=== PATIENT | male | born 1975 | race Caucasian/White ===

== ENCOUNTER 2017-09-07 02:23 | Emergency (ER) | payer BC ==
[2017-09-07 02:56] VITALS: BP 137/83; PULSE 83; TEMP 97.7; BMI 35.2
== END 2017-09-07 03:24 | disposition left against medical advice (07) ==
LOC: JER 02:23
DX: Z53.21 Procedure and treatment not carried out due to patient leaving prior to being seen by health care provider (principal)
CPT/HCPCS: 99281-25

== ENCOUNTER 2017-11-28 10:41 | Day surgery (SDC) | payer BC ==
[2017-11-25 14:21] VITALS: BMI 35.1
[2017-11-28 11:50] VITALS: TEMP 97.8
[2017-11-28 12:53] VITALS: BP 135/79; PULSE 84
--- NOTE | 2017-11-29 12:54 | PATH ---
Surgical Pathology Report Patient Name: ANN LOCO [facility]. Rec. #: [id number] /Age/Gender: 1975 (Age: 42) / M Account: [id number] [facility] Taken: 11/28/2017 Received: 11/28/2017 Reported: 11/29/2017 Physicians: Bayron Reza M.D. Specimen(s) Received A: BX PYLORIC NODULE / PROMINENT FOLD B: BX SCHATZKIS RING C: BX MID ESOPHAGUS Clinical History Preoperative diagnosis: Dysphagia Postoperative diagnosis: Schatzki's ring, GERD, antral gastritis with nodule Final Diagnosis A. STOMACH, PREPYLORIC NODULE, BIOPSY: REACTIVE GASTROPATHY WITH MILD CHRONIC GASTRITIS AND FOCAL INTESTINAL METAPLASIA. NO DYSPLASIA IDENTIFIED. IMMUNOSTAIN FOR H. PYLORI IS NEGATIVE. B. ESOPHAGUS, SCHATZKI'S RING, BIOPSY: SQUAMOUS MUCOSA WITH PAPILLOMATOSIS AND INTRAEPITHELIAL EOSINOPHILS CONSISTENT WITH REFLUX ESOPHAGITIS, AND GASTRIC TYPE MUCOSA WITH CHRONIC INFLAMMATION. NO INTESTINAL METAPLASIA IDENTIFIED (NO BONILLA'S IDENTIFIED). C. MID ESOPHAGUS, BIOPSY: SQUAMOUS EPITHELIUM WITH PAPILLOMATOSIS SUGGESTIVE OF REFLUX ESOPHAGITIS. NO EOSINOPHILIC ESOPHAGITIS IDENTIFIED. Electronically Signed Nicholas Joseph M.D. Gross Description A. Received in formalin, labeled "biopsy prepyloric nodule, prominent" are 5 magana, irregular portions of soft tissue ranging from 0.1-0.3 cm. in greatest dimension. The specimens are submitted in toto in one cassette. B. Received in formalin, labeled "biopsy Schatzki's ring" are 4 magana, irregular portions of soft tissue ranging from 0.1-0.4 cm. in greatest dimension. The specimens are submitted in toto in one cassette. C. Received in formalin, labeled "biopsy midesophagus" are 3 magana, irregular portions of soft tissue ranging from 0.3-0.5 cm. in greatest dimension. The specimens are submitted in toto in one cassette. 11/28/201711/28/2017
== END 2017-11-28 12:54 | disposition home or self-care (01) ==
LOC: JASU-ENDO 10:41
PROVIDERS: ATTEND Internal Medicine Gastroenterology
PROC: 0DB68ZX Excision of Stomach, Via Natural or Artificial Opening Endoscopic, Diagnostic (ICD-10-PCS; 2017-11-28)
PROC: 0DB28ZX Excision of Middle Esophagus, Via Natural or Artificial Opening Endoscopic, Diagnostic (ICD-10-PCS; 2017-11-28)
PROC: 0DB38ZX Excision of Lower Esophagus, Via Natural or Artificial Opening Endoscopic, Diagnostic (ICD-10-PCS; 2017-11-28)
PROC: 0DB48ZX Excision of Esophagogastric Junction, Via Natural or Artificial Opening Endoscopic, Diagnostic (ICD-10-PCS; 2017-11-28)
PROC: 0D748ZZ Dilation of Esophagogastric Junction, Via Natural or Artificial Opening Endoscopic (ICD-10-PCS; 2017-11-28)
PROC: 0DB98ZX Excision of Duodenum, Via Natural or Artificial Opening Endoscopic, Diagnostic (ICD-10-PCS; principal; 2017-11-28 10:30)
DX: K22.2 Esophageal obstruction (principal); K44.9 Diaphragmatic hernia without obstruction or gangrene; K21.9 Gastro-esophageal reflux disease without esophagitis; K29.70 Gastritis, unspecified, without bleeding
CPT/HCPCS: 88305-TC; 88342-TC

== ENCOUNTER 2017-11-29 10:46 | Emergency (ER) | payer BC ==
[2017-11-29 10:57] VITALS: BMI 35.2
--- NOTE | 2017-11-29 11:00 | PDOC ---
History of Present Illness <Ulises Hooks - Last Filed: 11/29/17 13:04> - General History Source: Patient Exam Limitations: No Limitations - History of Present Illness Initial Comments: 11/29/17 11:56 The patient is a 42-year-old male with a significant past medical history of HTN and gastritis, who presents to the emergency department with mid-sternal chest pain since yesterday. He reports he had an endoscopy with ring dilation by Dr. Reza yesterday. Afterwards, he states he developed pain in the mid- sternal esophageal region that is constant and subtle, and notes it feels like heartburn. He reports the pain is worsened when swallowing or drinking. He also reports the pain is reproducible with touch. The patient denies shortness of breath, headache and dizziness. The patient denies fever, chills, nausea, vomit, diarrhea, constipation, or urinary changes. Allergies: NKDA Past Surgical History: hernia repair, testicular torsion repair, tonsillectomy Social History: former smoker, no other toxic habits reported PCP: Dr. Alessandro Darden <Dena Romero - Last Filed: 11/29/17 13:11> - General Chief Complaint: Pain Stated Complaint: CHEST PAIN Time Seen by Provider: 11/29/17 11:00 Past History - Past Medical History Anemia: No Asthma: Yes (NO RECENT ATTACK) Cancer: No Cardiac Disorders: No CVA: No COPD: No CHF: No Dementia: No Diabetes: No GI Disorders: Yes (GERD,IBS,ANTRAL ANTRAL ULCERS,COLON AND GASTRIC POLYPS) Disorders: No HTN: Yes (ON ANF OFF HYPERTENSION) Hypercholesterolemia: No Liver Disease: Yes (NAFLD) Seizures: No Thyroid Disease: Yes (H/O GRAVES DISEASE) - Surgical History Abdominal Surgery: Yes (REPAIR RIGHT INGUINAL HERNIA) Appendectomy: No Cardiac Surgery: No Cholecystectomy: No Lung Surgery: No Neurologic Surgery: No Orthopedic Surgery: No - Immunization History Immunization Up to Date: Yes - Suicide/Smoking/Psychosocial Hx Smoking Status: No Smoking History: Never smoked Have you smoked in the past 12 months: No Number of Cigarettes Smoked Daily: 0 If you are a former smoker, when did you quit?: 1999 Hx Alcohol Use: No Drug/Substance Use Hx: No Substance Use Type: None Hx Substance Use Treatment: No <Ulises Hooks - Last Filed: 11/29/17 13:04> <Dena Romero - Last Filed: 11/29/17 13:11> - Past Medical History Allergies/Adverse Reactions: Allergies Allergy/AdvReac Type Severity Reaction Status Date / Time No Known Allergies Allergy Verified 11/29/17 10:54 Home Medications: Ambulatory Orders Albuterol Sulfate Inhaler - [Ventolin HFA Inhaler -] 2 inh IH PRN PRN 01/05/12 Ascorbic Acid [Vitamin C -] 500 mg PO DAILY 01/05/12 Niacin 1,000 mg PO DAILY 12/11/14 Olmesartan Medoxomil [Benicar -] 20 mg PO HS 12/11/14 Famotidine [Pepcid] 40 mg PO PRN PRN 11/25/17 Magnesium Oxide [Magnesium] 400 mg PO DAILY 11/25/17 Melatonin/Pyridoxine HCl (B6) [Melatonin 3 mg Tablet] 1 each PO HS 11/25/17 Valerian Root 800 mg PO HS 11/25/17 Esomeprazole Magnesium [Nexium 24Hr] 40 mg PO DAILY #1 capsule. 11/28/17 Mag Carb/Aluminum Hydrox/Algin [Gaviscon Liquid] 30 ml PO PRN PRN #1 oral.susp 11/28/17 Review of Systems - Review of Systems Able to Perform ROS?: Yes Comments:: 11/29/17 11:56 A complete review of 10 out of 10 review of systems is taken and is negative apart from what is previously mentioned below and in the HPI. <Dena Romero - Last Filed: 11/29/17 13:11> *Physical Exam - Vital Signs Last Vital Signs Temp Pulse Resp BP Pulse Ox 76 18 135/79 95 11/29/17 10:54 11/29/17 10:54 11/29/17 10:54 11/29/17 10:54 <Ulises Hooks - Last Filed: 11/29/17 13:04> - Vital Signs Last Vital Signs Temp Pulse Resp BP Pulse Ox 76 18 135/79 95 11/29/17 10:54 11/29/17 10:54 11/29/17 10:54 11/29/17 10:54 - Physical Exam Comments: 11/29/17 11:56 Vitals: Triage Vital signs reviewed General Appearance: no acute distress, well nourished well developed, Head: Atraumatic, normocephalic Throat: Posterior oropharynx without erythema, mucous membranes moist, Neck: Supple;No Nuchal rigidity Cardiac: Regular rate and rhythm, no murmurs, no rubs, no gallops, Lungs: Clear to auscultation bilateral, good air movement bilaterally, Extremities: Full range of motion to all extremities, no cyanosis, clubbing, or edema Skin: Warm and dry, no rashes or lesions, no petechiae Psych: normal mood, normal affect <Dena Romero - Last Filed: 11/29/17 13:11> Heart Score/ECG Review - ECG Impressions Comment:: 11/29/17 11:11 EKG performed at 10:52 AM. Demonstrates a rate of 74 bpm normal sinus rhythm [place] 150 QRS 86 QTC 4:[address] elevations no T-wave inversions Interpreted by me <Ulises Hooks - Last Filed: 11/29/17 13:04> ED Treatment Course - LABORATORY CBC & Chemistry Diagram: 11/29/17 11:26 11/29/17 11:16 <Ulises Hooks - Last Filed: 11/29/17 13:04> - LABORATORY CBC & Chemistry Diagram: 11/29/17 11:26 11/29/17 11:16 - ADDITIONAL ORDERS Additional order review: 11/29/17 11:26 RBC 5.24 MCV 86.7 MCHC 35.2 RDW 12.8 MPV 7.9 Neutrophils % 55.2 Lymphocytes % 31.6 Monocytes % 7.3 Eosinophils % 4.7 H Basophils % 1.2 <Dena Romero - Last Filed: 11/29/17 13:11> Medical Decision Making - Medical Decision Making Discussed with patient's electromechanical assembly technician. Recommended esophagram No extravasation on esophagram. Patient will follow-up with his electromechanical assembly technician next week History examination consistent with mild postprocedural discomfort no evidence of perforation Findings, the need for follow-up and strict return instructions discussed with patient. <Ulises Hooks - Last Filed: 11/29/17 13:04> - Medical Decision Making 11/29/17 13:10 Dr. Reza (patient's electromechanical assembly technician) was paged at 11:09am and page was returned at 11:23am. Case was discussed with Dr. Kozicky as noted above. <Dena Romero - Last Filed: 11/29/17 13:11> *DC/Admit/Observation/Transfer <Ulises Hooks - Last Filed: 11/29/17 13:04> - Attestations Scribe Attestion: 11/29/17 11:57 Documentation prepared by Dena Romero, acting as medical oncology physician for Ulises Hooks MD, MD/DO. <Dena Romero - Last Filed: 11/29/17 13:11> Diagnosis at time of Disposition: Pain of esophagus - Referrals Referrals: Alessandro Darden MD [Primary Care Provider] - Bayron Reza MD [Staff Physician] - - Patient Instructions Additional Instructions: Take Gavascon as prescribed. Follow-up with your doctor next week. Return to emergency department for any fever difficulty breathing inability to swallow or for any concerns.
[2017-11-29 11:37] LABS: BASO % 1.2 % (0-2.0); EOS % 4.7 % (0-4.5); HEMATOCRIT 45.5 % (35.4-49); LYMPH % 31.6 % (8-40); MCH 30.5 pg (25.7-33.7); MCHC 35.2 g/dl (32.0-35.9); MEAN CELL VOLUME 86.7 fl (80-96); MEAN PLT VOLUME 7.9 fl (7.5-11.1); MONO % 7.3 % (3.8-10.2); NEUT % 55.2 % (42.8-82.8); PLATELET COUNT 235 K/MM3 (134-434); RBC 5.24 M/mm3 (4.00-5.60); RDW 12.8 % (11.9-15.9); WHITE BLOOD COUNT 7.1 K/mm3 (4.0-10.0)
[2017-11-29 12:05] LABS: ALBUMIN 3.7 g/dl (3.4-5.0); ANION GAP 9 (8-16); BILIRUBIN,TOTAL 0.5 mg/dL (0.2-1.0); BLOOD UREA NITROGEN 15 mg/dL (7-18); CALCIUM 8.4 mg/dL (8.5-10.1); CHLORIDE 107 mmol/L (98-107); CO2 24 mmol/L (21-32); CREATININE 1.1 mg/dL (0.7-1.3); GLUCOSE,RANDOM 89 mg/dL (74-106); POTASSIUM 4.7 mmol/L (3.5-5.1); SGOT/AST 21 U/L (15-37); SGPT/ALT 43 U/L (12-78); SODIUM 140 mmol/L (136-145); TOT PROT 7.2 g/dl (6.4-8.2)
[2017-11-29 12:08] LABS: ALK PHOS 94 U/L (45-117)
--- NOTE | 2017-11-29 12:10 | EKG ---
Test Reason : Blood Pressure : / mmHG Vent. Rate : 074 BPM Atrial Rate : 074 BPM P-R Int : 150 ms QRS Dur : 086 ms QT Int : 374 ms P-R-T Axes : 054 036 026 degrees QTc Int : 415 ms NORMAL SINUS RHYTHM NORMAL ECG WHEN COMPARED WITH ECG OF 27-JAN-2014 20:35, NO SIGNIFICANT CHANGE WAS FOUND Confirmed by MD ADRIÁN, MICHELLE ([id number]) on 11/29/2017 12:10:02 PM Referred By: Confirmed By:MICHELLE SAMPSON MD
[2017-11-29 12:44] VITALS: BP 135/88; PULSE 84
[2017-11-29 13:10] VITALS: TEMP 99.1
== END 2017-11-29 13:10 | disposition home or self-care (01) ==
LOC: JER 10:46
DX: K22.8 Other specified diseases of esophagus (principal); Z98.890 Other specified postprocedural states; K91.89 Other postprocedural complications and disorders of digestive system; I10 Essential (primary) hypertension; J45.909 Unspecified asthma, uncomplicated; K76.0 Fatty (change of) liver, not elsewhere classified
CPT/HCPCS: 36415; 71046-TC-FY; 74220-TC-FY; 80053; 84484; 85025; 93005; 93010; 99282-25

== ENCOUNTER 2018-11-24 06:35 | Day surgery (SDC) | payer BC ==
[2018-11-23 09:01] VITALS: BMI 35.9
[2018-11-24] MEDS ORDERED: LIDOCAINE HCL 1%, 10 MG/ML (20ML VIAL) ONE (07:13)
[2018-11-24] MEDS ORDERED: BUPIVACAINE HCL/PF 0.5% (5MG/ML) 10 ML VIAL ONE (07:13)
[2018-11-24] MEDS ORDERED: MIDAZOLAM HCL 2 MG/2 ML SINGLE DOSE VIAL ONE ×4 (08:04→08:31)
[2018-11-24] MEDS ORDERED: PROPOFOL 20 ML ONE ×2 (08:04)
[2018-11-24] MEDS ORDERED: ceFAZolin SODIUM 1 GM VIAL IVPB ONE (08:10)
[2018-11-24] MEDS ORDERED: LIDOCAINE HCL 1%, 10 MG/ML (20ML VIAL) NR ONE (08:20)
[2018-11-24] MEDS ORDERED: ceFAZolin SODIUM 1 GM VIAL ONE ×2 (08:28)
[2018-11-24] MEDS ORDERED: DEXAMETHASONE SOD PHOSPHATE 4 MG/1 ML VIAL ONE (08:28)
[2018-11-24] MEDS ORDERED: KETOROLAC TROMETHAMINE 30 MG/1 ML VIAL ONE (08:28)
[2018-11-24] MEDS ORDERED: BUPIVACAINE HCL/PF 0.5% (5MG/ML) 10 ML VIAL IJ ONE (08:37)
[2018-11-24 11:38] VITALS: BP 120/70; PULSE 88; TEMP 97.2
--- NOTE | 2018-11-28 14:01 | PATH ---
Surgical Pathology Report Patient Name: ANN LOCO [facility]. Rec. #: [id number] /Age/Gender: 1975 (Age: 43) / M Account: [id number] Location: [facility] SURGICAL Taken: 11/24/2018 Received: 11/24/2018 Reported: 11/28/2018 Physicians: Nj Alas DPM Specimen(s) Received BONE, RIGHT FOOT Clinical History Right foot bunion Final Diagnosis FOOT, RIGHT, BONE, BUNIONECTOMY: BONE WITH DEGENERATIVE CHANGES. Electronically Signed Una Bush M.D. Gross Description Received in formalin labeled "bone right foot," are 2 magana-yellow, irregular portions of bone measuring 1.8 x 1.0 x 0.2 cm and 2.1 x 1.8 x 0.3 cm. Process Environmental Technician sections are submitted in one cassette, following decalcification. /11/27/2018 saudi11/27/2018
--- NOTE | 2019-01-05 07:32 | OP ---
DATE OF OPERATION: 11/24/2018 PREOPERATIVE DIAGNOSIS: Right bunion. POSTOPERATIVE DIAGNOSIS: Right bunion. ANESTHESIA: General . SURGEON: Nj Alas DPM HEMOSTASIS: Ankle tourniquet placed at 250 mmHg. PROCEDURE: The patient was prepped and draped in the usual manner and brought to the OR in stable condition and placed on the table in the supine position. After receiving general anesthesia and local infiltrative block of 10 mL lidocaine plain 1%, an ankle tourniquet was inflated to 250 mmHg for hemostasis, and the foot was prepped and draped in the usual aseptic manner. Attention was directed to the dorsal aspect of the right 1st metatarsophalangeal joint, where a linear incision was made thereby exposing the deep tissues and capsule. The skin was reflected both medially and laterally, and the capsule was excised linearly with a sterile No. 15 blade and reflected both medially and laterally, thereby exposing the head of the 1st metatarsal into the surgical site. Utilizing a power micro-sagittal saw, a Silver bunionectomy was performed, thereby removing all of the heterotopic bone formation around the head of the 1st metatarsal and proximal phalanx. The bone was then smoothed with a darion and a hand rasp. At this time, the wound was then flushed out with copious amounts of sterile bacteriostatic water. The capsule was then and sutures closed with 3-0 Vicryl suture, and the skin was closed with 4-0 Vicryl and 4-0 nylon suture in a simple running technique. Postoperative anesthesia of 10 mL of Marcaine plain was then infiltrated proximally to the surgical site. At this time, the ankle tourniquet was then deflated, and there was an instantaneous hyperemic response noted to return to all digits of the operative foot. Patient was stable at the time of procedure. Application of Adaptic and a dry sterile compressive dressing was then applied. Patient was sent to PACU in stable condition, where he was given all postoperative instructions. NJ ALAS DPM [id number]
== END 2018-11-24 11:38 | disposition home or self-care (01) ==
LOC: JASU-SURG 06:35
PROVIDERS: ATTEND Podiatrist Foot Surgery
PROC: 0QSN04Z Reposition Right Metatarsal with Internal Fixation Device, Open Approach (ICD-10-PCS; principal; 2018-11-24 07:30)
DX: M21.611 Bunion of right foot (principal)
CPT/HCPCS: 88304-TC; 88311-TC

== ENCOUNTER 2020-10-25 13:53 | Emergency (ER) | payer BC ==
[2020-10-25 14:04] VITALS: BMI 34.9
[2020-10-25] MEDS ORDERED: BAMLANIVIMAB 700 MG in SODIUM CHLORIDE 180 ML IVPB ONE (14:28)
[2020-10-25 15:09] LABS: HEMATOCRIT 40.9 % (35.4-49); HEMOGLOBIN 13.7 GM/dL (11.7-16.9); MCH 27.9 pg (25.7-33.7); MCHC 33.5 g/dl (32.0-35.9); MEAN CELL VOLUME 83.2 fl (80-96); MEAN PLT VOLUME 8.2 fl (7.5-11.1); PLATELET COUNT 181 K/MM3 (134-434); RBC 4.91 M/mm3 (4.00-5.60); RDW 13.4 % (11.9-15.9); WHITE BLOOD COUNT 5.5 K/mm3 (4.0-10.0)
[2020-10-25 15:33] LABS: CHLORIDE 106 mmol/L (98-107); POTASSIUM 4.1 mmol/L (3.5-5.1); SODIUM 139 mmol/L (136-145)
[2020-10-25 15:34] LABS: CALCIUM 8.3 mg/dL (8.5-10.1)
[2020-10-25 15:35] LABS: ANION GAP 8 MMOL/L (8-16); BLOOD UREA NITROGEN 14.9 mg/dL (7-18); CO2 25 mmol/L (21-32); GLUCOSE,RANDOM 107 mg/dL (74-106)
[2020-10-25 15:38] LABS: CREATININE 1.2 mg/dL (0.55-1.3)
[2020-10-25] MEDS ORDERED: ONDANSETRON 4 MG/2 ML VIAL IVPUSH ONE (15:52)
[2020-10-25] MEDS ORDERED: ACETAMINOPHEN 325 MG TABLET (FP) PO ONE (15:53)
[2020-10-25] MEDS ORDERED: ONDANSETRON 4 MG/2 ML VIAL ONE (15:57)
[2020-10-25] MEDS ORDERED: ACETAMINOPHEN 325 MG TABLET (FP) ONE (15:57)
[2020-10-25] MEDS ORDERED: KETOROLAC TROMETHAMINE 30 MG/1 ML VIAL IVPUSH ONE (17:15)
[2020-10-25] MEDS ORDERED: KETOROLAC TROMETHAMINE 30 MG/1 ML VIAL ONE (17:30)
[2020-10-25 18:20] VITALS: BP 132/83; PULSE 77; TEMP 98.1
== END 2020-10-25 18:49 | disposition home or self-care (01) ==
LOC: JER 13:53
PROC: 3E03329 Introduction of Other Anti-infective into Peripheral Vein, Percutaneous Approach (ICD-10-PCS; principal; 2020-10-25)
PROC: 3E0333Z Introduction of Anti-inflammatory into Peripheral Vein, Percutaneous Approach (ICD-10-PCS; 2020-10-25)
PROC: 3E033GC Introduction of Other Therapeutic Substance into Peripheral Vein, Percutaneous Approach (ICD-10-PCS; 2020-10-25)
DX: U07.1 COVID-19 (principal)
CPT/HCPCS: 36415; 71046-TC-FY; 80048; 82550; 82553; 84484; 85027; 93005; 93010; 99285-25; M0239; Q0239

== ENCOUNTER 2020-12-26 04:50 | Day surgery (SDC) | payer BC ==
[2020-12-24 16:45] VITALS: BMI 35.2
[2020-12-26 08:57] VITALS: TEMP 97.8
[2020-12-26] MEDS ORDERED: ALBUTEROL SO4 HFA INHALER IH ONE ×2 (09:07→09:08)
[2020-12-26 10:09] VITALS: BP 113/75; PULSE 90
== END 2020-12-26 10:05 | disposition home or self-care (01) ==
LOC: JASU-ENDO 04:50
PROVIDERS: ATTEND Internal Medicine Gastroenterology
PROC: 0DBL8ZX Excision of Transverse Colon, Via Natural or Artificial Opening Endoscopic, Diagnostic (ICD-10-PCS; 2020-12-26)
PROC: 0DB48ZX Excision of Esophagogastric Junction, Via Natural or Artificial Opening Endoscopic, Diagnostic (ICD-10-PCS; 2020-12-26)
PROC: 0DB78ZX Excision of Stomach, Pylorus, Via Natural or Artificial Opening Endoscopic, Diagnostic (ICD-10-PCS; 2020-12-26)
PROC: 0D738ZZ Dilation of Lower Esophagus, Via Natural or Artificial Opening Endoscopic (ICD-10-PCS; 2020-12-26)
PROC: 0DBP8ZX Excision of Rectum, Via Natural or Artificial Opening Endoscopic, Diagnostic (ICD-10-PCS; principal; 2020-12-26 08:00)
DX: Z12.11 Encounter for screening for malignant neoplasm of colon (principal); Z80.0 Family history of malignant neoplasm of digestive organs; K62.1 Rectal polyp; K63.5 Polyp of colon; R13.10 Dysphagia, unspecified; K22.2 Esophageal obstruction; K29.50 Unspecified chronic gastritis without bleeding; K44.9 Diaphragmatic hernia without obstruction or gangrene; K64.8 Other hemorrhoids; K45.8 Other specified abdominal hernia without obstruction or gangrene
CPT/HCPCS: 88305-TC; 88342-TC

== ENCOUNTER 2021-03-08 17:24 | Emergency (ER) | payer BC ==
[2021-03-08] MEDS ORDERED: morphine CARPU-JECT 4 MG/1 ML DISP.SYRIN IVPUSH ONE (17:28)
[2021-03-08] MEDS ORDERED: morphine SULFATE 4 MG/ML VIAL ONE (17:48)
[2021-03-08] MEDS ORDERED: SODIUM CHLORIDE 1,000 ML IV STA (17:59)
[2021-03-08 18:04] LABS: BASO % 1.6 % (0-2.0); EOS % 5.6 % (0-4.5); HEMATOCRIT 30.5 % (35.4-49); LYMPH % 20.7 % (8-40); MCH 25.7 pg (25.7-33.7); MCHC 32.8 g/dl (32.0-35.9); MEAN CELL VOLUME 78.3 fl (80-96); MEAN PLT VOLUME 8.8 fl (7.5-11.1); MONO % 7.2 % (3.8-10.2); NEUT % 64.9 % (42.8-82.8); PLATELET COUNT 264 10^3/uL (134-434); RBC 3.89 M/mm3 (4.00-5.60); RDW 13.8 % (11.9-15.9); WHITE BLOOD COUNT 12.1 K/mm3 (4.0-10.8)
[2021-03-08 18:18] LABS: ACTIVATED PTT 21.4 SECONDS (25.2-36.5)
[2021-03-08 18:23] LABS: INR 1.13 (0.82-1.09); PROTHROMBIN TIME (PATIENT) 12.5 SEC (10.2-13.0)
[2021-03-08 18:41] VITALS: BMI 35.9
[2021-03-08 18:41] LABS: ALBUMIN 3.7 g/dl (3.4-5.0); ALK PHOS 74 U/L (45-117); ANION GAP 8 MMOL/L (8-16); BILIRUBIN,TOTAL 0.4 mg/dl (0.2-1); CALCIUM 8.9 mg/dl (8.5-10); CHLORIDE 107 mmol/L (98-107); CO2 21 mmol/L (21-32); CREATININE 1.3 mg/dl (0.55-1.3); GLUCOSE,RANDOM 101 mg/dl (74-106); SGOT/AST 23 U/L (15-37); SGPT/ALT 27 U/L (13-61); SODIUM 136 mmol/L (136-145); TOT PROT 6.8 g/dl (6.4-8.2)
[2021-03-08 19:25] LABS: LIPASE 151 U/L (73-393)
[2021-03-08] MEDS ORDERED: KETOROLAC TROMETHAMINE 30 MG/1 ML VIAL ONE (20:37)
[2021-03-08] MEDS ORDERED: KETOROLAC TROMETHAMINE 30 MG/1 ML VIAL IVPUSH ONE (20:46)
[2021-03-08 20:50] VITALS: BP 140/91; PULSE 83; TEMP 98.2
== END 2021-03-08 20:56 | disposition home or self-care (01) ==
LOC: FER 17:24
PROC: 3E0333Z Introduction of Anti-inflammatory into Peripheral Vein, Percutaneous Approach (ICD-10-PCS; principal; 2021-03-08)
PROC: 3E033NZ Introduction of Analgesics, Hypnotics, Sedatives into Peripheral Vein, Percutaneous Approach (ICD-10-PCS; 2021-03-08)
PROC: 3E0337Z Introduction of Electrolytic and Water Balance Substance into Peripheral Vein, Percutaneous Approach (ICD-10-PCS; 2021-03-08)
DX: K38.8 Other specified diseases of appendix (principal)
CPT/HCPCS: 36415; 74177-TC; 80053; 81003; 82550; 83605; 83690; 84484; 85025; 85610; 85730; 86850; 86900; 86901; 87086; 93005; 99285-25; Q9967